=== PATIENT | male | born 1940 | race African-American/Black ===

== ENCOUNTER 2020-06-23 06:35 | Emergency (ER) | payer OTHER ==
[~2020-06-23] VITALS: Ht 167.6 cm; Wt 69.9 kg
[2020-06-23] MEDS ORDERED: FORTAMET1000 MG (06:54)
[2020-06-23] MEDS ORDERED: CHILDREN'S ASPI81 MG (06:55)
[2020-06-23] MEDS ORDERED: SIMETHICONE 180 MG (06:55)
[2020-06-23] MEDS ORDERED: KETOROLAC 10 MG. (06:57)
[2020-06-23] MEDS ORDERED: COSOPT PF EYE1 EACH (06:58)
[2020-06-23] MEDS ORDERED: JANUMET XR 50-1 EAC1 (06:58)
[2020-06-23] MEDS ORDERED: MEMANTINE HCL10 MG (06:59)
[2020-06-23] MEDS ORDERED: RANITIDINE 300 MG (07:00)
[2020-06-23] MEDS ORDERED: TERAZOSIN HCL2 M1 (07:01)
[2020-06-23] MEDS ORDERED: COZAAR50 MG (07:02)
[2020-06-23] MEDS ORDERED: HORIZANT300 MG (07:02)
[2020-06-23] MEDS ORDERED: DIVALPROEX (07:04)
[2020-06-23] MEDS ORDERED: PLAVIX75 MG (07:04)
[2020-06-23] MEDS ORDERED: EZALLOR SPRINKL20 MG (07:04)
[2020-06-23] MEDS ORDERED: GLIPIZIDE XL5 MG (07:05)
[2020-06-23] MEDS ORDERED: ARICEPT10 MG (07:06)
[2020-06-23] MEDS ORDERED: ALLERGY RELIEF10 M4 (07:06)
[2020-06-23] MEDS ORDERED: TAMSULOSIN 0.4 MG (07:08)
[2020-06-23] MEDS ORDERED: IBU600 MG (07:08)
[2020-06-23] MEDS ORDERED: MULTIVITAMIN (07:09)
[2020-06-23] MEDS ORDERED: KETO10TA2 PO (14:37)
[2020-06-23] MEDS ORDERED: DUI500 PO (14:37)
[2020-06-23] MEDS ORDERED: PYRIDIUM DS200 MG PO (14:37)
== END 2020-06-23 15:07 | disposition home or self-care (01) ==
LOC: ER 06:35
DX: N30.81 Other cystitis with hematuria (principal)

== ENCOUNTER 2020-06-26 17:23 | Emergency (ER) | payer OTHER ==
[~2020-06-26] VITALS: Ht 167.6 cm; Wt 69.9 kg
[~2020-06-26 17:23] MED LIST: ALLERGY RELIEF10 M4; ARICEPT10 MG; CHILDREN'S ASPI81 MG; COSOPT PF EYE1 EACH; COZAAR50 MG; DIVALPROEX; DUI500 PO; EZALLOR SPRINKL20 MG; FORTAMET1000 MG; GLIPIZIDE XL5 MG; HORIZANT300 MG; IBU600 MG; JANUMET XR 50-1 EAC1; KETO10TA2 PO; KETOROLAC 10 MG.; MEMANTINE HCL10 MG; MULTIVITAMIN; PLAVIX75 MG; PYRIDIUM DS200 MG PO; RANITIDINE 300 MG; SIMETHICONE 180 MG; TAMSULOSIN 0.4 MG; TERAZOSIN HCL2 M1
[2020-06-26] MEDS ORDERED: KETOROLAC 10 MG. (18:00)
[2020-06-26] MEDS ORDERED: PHENAZOPYRIDIN200 MG (18:01)
[2020-06-26] MEDS ORDERED: CEFADROXIL500 MG (18:01)
[2020-06-26] MEDS ORDERED: MEDROLPACK PO (22:44)
[2020-06-26] MEDS ORDERED: DOLOGEN CAPLET1 EACH PO (22:44)
[2020-06-26] MEDS ORDERED: CIPRO500 MG PO (22:44)
== END 2020-06-26 23:24 | disposition home or self-care (01) ==
LOC: ER 17:23
DX: R33.8 Other retention of urine (principal); U07.1 COVID-19; N39.0 Urinary tract infection, site not specified

== ENCOUNTER 2020-07-09 09:14 | Emergency (ER) | payer OTHER ==
[~2020-07-09] VITALS: Ht 167.6 cm; Wt 69.9 kg
[~2020-07-09 09:14] MED LIST changes: +CEFADROXIL500 MG; +CIPRO500 MG PO; +DOLOGEN CAPLET1 EACH PO; +MEDROLPACK PO; +PHENAZOPYRIDIN200 MG
== END 2020-07-09 10:23 | disposition home or self-care (01) ==
LOC: ER 09:14
DX: R33.8 Other retention of urine (principal)